=== PATIENT | female | born 1995 | race Caucasian/White ===

== ENCOUNTER 2021-01-08 03:21 | Emergency (ER) | payer OTHER, SELFPAY ==
[2021-01-08 03:30] VITALS: BP 108/64; BP 112/76; PULSE 84; PULSE 96; RESP 16; TEMP 36.7; O2SAT 95; O2SAT 96; BMI 25.6
[2021-01-08 04:02] VITALS: RESP 16
--- NOTE | 2021-01-08 05:56 | PC.NURSE ---
pt still intoxicated, sleeping it off. Provider in to assess pt. Pt is able to aroused with stimulus. Will continue to monitor.
--- NOTE | 2021-01-08 06:15 | ED.ALCOHOL ---
HPI - Alcohol General Chief Complaint: ETOH/Substance Use Stated Complaint: ETOH Time Seen by Provider: 01/08/21 06:15 Source: patient Mode of arrival: ambulatory History of Present Illness HPI narrative: 25-year-old female brought in by EMS after patient was found to be vomiting near her car and suspect to be extremely intoxicated. Patient is rousable but otherwise not providing any further medical history. Related Data Allergies Allergy/AdvReac Type Severity Reaction Status Date / Time No Known Allergies Allergy Unverified 01/16/20 17:49 Review of Systems Review of Systems: Yes Unobtainable due to mental condition PMFSH Past Medical History Source: nursing notes reviewed Social History Social History Alcohol intake: current Patient Tobacco Use Status: Never used Tobacco Use of substances other than those prescribed or required for medical reasons: No Physical Exam Vital Signs: Vital Signs: Last Vital Signs Temp 98.1 F 01/08/21 03:30 Pulse 96 01/08/21 03:30 Resp 16 01/08/21 04:02 BP 108/64 01/08/21 03:30 Pulse Ox 95 01/08/21 03:30 Body Mass Index 25.6 VITAL SIGNS: Reviewed. GENERAL: Well developed, well nourished, in no acute distress. HEAD: Normocephalic/atraumatic EYES: PERRLA, EOMI OROPHARYNX: no oral lesions noted, posterior pharynx clearNo adventitious sounds or accessory muscle use. SpO2<95> CARDIOVASCULAR: Regular rate and rhythm without noted murmurs ABDOMEN: Soft, non-tender, non-distended with bowel sounds. NEUROLOGIC: Drowsy and oriented x 3. Course Course Course Narrative: 25-year-old female with history and clinical presentation consistent with alcohol intoxication, she is hemodynamically stable and can be discharged when clinically sober. Discharge Plan Discharge Clinical Impression: Alcoholic intoxication Patient Disposition: Home, Self-Care Instructions: Alcohol Intoxication (ED) Additional Instructions: Return to the ER for acute worsening of symptoms.
[2021-01-08 08:20] VITALS: BP 141/71; PULSE 75; RESP 18; O2SAT 100
== END 2021-01-08 08:37 | disposition home or self-care (01) ==
PROVIDERS: Emergency Provider Emergency Medicine; PCP Internal Medicine
DX: F10.129 Alcohol abuse with intoxication, unspecified (principal); Y90.9 Presence of alcohol in blood, level not specified
CPT/HCPCS: 99283; 99285